=== PATIENT | male | born 1975 | race African-American/Black ===

== ENCOUNTER 2021-04-29 03:35 | Emergency (ER) | payer SELFPAY ==
[2021-04-29 04:20] VITALS: BP 175/120; PULSE 83; TEMP 98; BMI 30.8
[2021-04-29] MEDS ORDERED: LIDOCAINE 5% TOPICAL PATCH TP ONE (04:59)
[2021-04-29] MEDS ORDERED: ACETAMINOPHEN 325 MG TABLET (FP) PO ONE (05:03)
[2021-04-29] MEDS ORDERED: LIDOCAINE 5% TOPICAL PATCH ONE (05:25)
[2021-04-29] MEDS ORDERED: ACETAMINOPHEN 325 MG TABLET (FP) ONE (05:25)
[2021-04-29] MEDS ORDERED: LIDOCAINE PATCH REMOVAL MC SCH (22:00)
== END 2021-04-29 06:04 | disposition home or self-care (01) ==
LOC: JER 03:35
DX: S22.31XA Fracture of one rib, right side, initial encounter for closed fracture (principal); W22.8XXA Striking against or struck by other objects, initial encounter
CPT/HCPCS: 99283-25